=== PATIENT | female | born 1980 | race Caucasian/White ===

== ENCOUNTER 2021-01-13 11:33 | Emergency (ER) | payer BC ==
[~2021-01-13 11:33] MED LIST: AUGMENTIN 875-1 EACH PO; IBUPROFEN600 MG PO; NORCO 5-325 TA1 EACH PO; ZOFRAN ODT 4 MG4 MG PO
[2021-01-13 14:00] LABS: HEMOGLOBIN 14.5 gm/dl (12.3-15.3); RED BLOOD COUNT 4.62 M/UL (4.00-5.10); WHITE BLOOD COUNT 13.8 K/UL (4.5-11.0)
[2021-01-13 14:22] LABS: BUN/CREATININE RATIO 14 (0-10)
[2021-01-13] MEDS ORDERED: MECLIZINE HCL25 MG PO (16:43)
[2021-01-13] MEDS ORDERED: MOBIC15 MG PO (16:43)
[2021-03-17] MEDS ORDERED: CELEXA10 MG PO (16:16)
[2021-03-17] MEDS ORDERED: OMEPRAZOLE20 M1 PO (16:16)
[2021-03-17] MEDS ORDERED: VYVANSE40 MG PO (16:17)
[2021-03-17] MEDS ORDERED: ZYRTEC10 MG PO (16:17)
[2021-03-17] MEDS ORDERED: SINGULAIR10 MG PO (16:17)
[2021-03-17] MEDS ORDERED: FLONASE 0.05% N16 GM (16:18)
[2021-03-17] MEDS ORDERED: KRILL OIL500 MG PO (16:19)
[2021-03-17] MEDS ORDERED: BIRTH CONTROL PO (16:19)
[2021-03-17] MEDS ORDERED: AZO CRANBERRY1 EAC1 PO (16:19)
[2021-03-17] MEDS ORDERED: DAILY VALUE1 EACH PO (16:20)
[2021-03-17] MEDS ORDERED: PROBIOTIC1 EACH PO (16:20)
[2021-03-17] MEDS ORDERED: POTASSIUM99 M1 PO (16:20)
[2021-03-17] MEDS ORDERED: VITAMIN D325 MC6 PO (16:20)
[2021-03-17] MEDS ORDERED: VITAMIN B12 PO (16:21)
== END 2021-01-13 17:12 | disposition home or self-care (01) ==
LOC: ER1 11:33
PROVIDERS: Physician Assistant
DX: J32.8 Other chronic sinusitis (principal); R20.2 Paresthesia of skin; H55.09 Other forms of nystagmus; R42 Dizziness and giddiness; K21.9 Gastro-esophageal reflux disease without esophagitis; F41.9 Anxiety disorder, unspecified; Z90.49 Acquired absence of other specified parts of digestive tract; Z88.1 Allergy status to other antibiotic agents; Z79.899 Other long term (current) drug therapy; Z87.442 Personal history of urinary calculi; Z79.1 Long term (current) use of non-steroidal anti-inflammatories (NSAID)
CPT/HCPCS: 36415; 70450; 80053; 81001; 84703; 85025; 96372; 96374; 99284; J1885; J7030

== ENCOUNTER → 2021-02-03 | Outpatient (CLI) | payer BC ==
[~2021-02-03] MED LIST changes: +AZO CRANBERRY1 EAC1 PO; +BIRTH CONTROL PO; +CELEXA10 MG PO; +DAILY VALUE1 EACH PO; +FLONASE 0.05% N16 GM; +KRILL OIL500 MG PO; +MECLIZINE HCL25 MG PO; +MOBIC15 MG PO; +OMEPRAZOLE20 M1 PO; +POTASSIUM99 M1 PO; +PROBIOTIC1 EACH PO; +SINGULAIR10 MG PO; +VITAMIN B12 PO; +VITAMIN D325 MC6 PO; +VYVANSE40 MG PO; +ZYRTEC10 MG PO
== END ==
LOC: KOH-I 01-30 14:30
DX: J32.4 Chronic pansinusitis (principal); J34.89 Other specified disorders of nose and nasal sinuses; J34.2 Deviated nasal septum
CPT/HCPCS: 70486

== ENCOUNTER → 2021-03-20 | Day surgery (SDC) | payer BC | END | disposition home or self-care (01) | LOC: OR 06:47 | DX: J32.4 Chronic pansinusitis (principal); J34.3 Hypertrophy of nasal turbinates; J34.2 Deviated nasal septum; R09.82 Postnasal drip; K21.9 Gastro-esophageal reflux disease without esophagitis; E66.01 Morbid (severe) obesity due to excess calories; M19.90 Unspecified osteoarthritis, unspecified site; F41.8 Other specified anxiety disorders; Z20.822 Contact with and (suspected) exposure to COVID-19 | CPT/HCPCS: 84703; C1726; J0171; J0690; J1100; J2001; J2250; J2405; J2704; J2710; J3010; J7030; J7120 ==

== ENCOUNTER 2021-06-24 14:59 | Outpatient (CLI) | payer BC ==
[2021-06-24 16:13] LABS: HEMOGLOBIN 13.3 gm/dl (12.3-15.3); RED BLOOD COUNT 4.34 M/UL (4.00-5.10)
[2021-06-24 16:34] LABS: BUN/CREATININE RATIO 16 (0-10); GAMMA GLUTAMYL TRANSPEPTIDASE 36 U/L (7-64)
[2021-06-25 08:14] LABS: ALPHA-1-ANTITRYPSIN, SERUM 237 mg/dL (101-187); CERULOPLASMIN 40.9 mg/dL (19.0-39.0); HCV AB <0.1 (0.0-0.9)
[2021-06-25 11:15] LABS: HBSAG SCREEN Negative (Negative); HEP B CORE AB, IGM Negative (Negative); HEP B CORE AB, TOT Negative (Negative)
[2021-06-25 14:15] LABS: ACTIN (SMOOTH MUSCLE) ANTIBODY 6 Units (0-19); MITOCHONDRIAL (M2) ANTIBODY <20.0 Units (0.0-20.0)
[2021-06-26 06:10] LABS: HEP A AB, IGM Negative (Negative)
== END 2021-06-24 16:00 ==
LOC: LAB 14:59
PROVIDERS: Physician Assistant
DX: R74.8 Abnormal levels of other serum enzymes (principal); R05 Cough; R79.89 Other specified abnormal findings of blood chemistry; R19.7 Diarrhea, unspecified
CPT/HCPCS: 36415; 71046; 80053; 82103; 82390; 82728; 82977; 83516; 83540; 83550; 85025; 86704; 86705; 86706; 86708; 86709; 86803; 87340

== ENCOUNTER → 2021-06-26 | Outpatient (CLI) | payer BC | LOC: EXRD 08:00 | DX: R74.8 Abnormal levels of other serum enzymes (principal); R16.0 Hepatomegaly, not elsewhere classified | CPT/HCPCS: 76705 ==

== ENCOUNTER → 2021-07-09 | Outpatient (CLI) | payer BC ==
[2021-07-11 08:13] LABS: ALPHA-1-ANTITRYPSIN, SERUM 218 mg/dL (101-187)
[2021-07-11 11:13] LABS: HBSAG SCREEN Negative (Negative); HEP A AB, IGM Negative (Negative); HEP B CORE AB, IGM Negative (Negative); HEP C VIRUS AB <0.1 (0.0-0.9)
[2021-07-11 15:08] LABS: MITOCHONDRIAL (M2) ANTIBODY <20.0 Units (0.0-20.0)
== END ==
LOC: LAB 15:27
PROVIDERS: Internal Medicine Gastroenterology
DX: R94.5 Abnormal results of liver function studies (principal)
CPT/HCPCS: 80074; 80076; 82103; 82728; 83540; 83550; 86038

== ENCOUNTER → 2022-05-17 | Outpatient (CLI) | payer BC | LOC: RAD 14:26 | DX: M25.561 Pain in right knee (principal); M25.562 Pain in left knee | CPT/HCPCS: 73562 ==

== ENCOUNTER → 2022-07-01 | Outpatient (CLI) | payer BC ==
[2022-07-01 16:40] LABS: BORDETELLA PARAPERTUSSIS Not Detected (Not Detectd); BORDETELLA PERTUSSIS Not Detected (Not Detectd); CHLAMYDIA PNEUMONIAE Not Detected (Not Detectd); CORONAVIRUS HKU1 Not Detected (Not Detectd); CORONAVIRUS NL63 Not Detected (Not Detectd); CORONAVIRUS OC43 Not Detected (Not Detectd); CORONOAVIRUS 229E Not Detected (Not Detectd); HUMAN METAPNEUMOVIRUS Not Detected (Not Detectd); HUMAN RHINOVIRUS/ENTEROVIRUS Not Detected (Not Detectd); INFLUENZA A Not Detected (Not Detectd); INFLUENZA B Not Detected (Not Detectd); MYCOPLASMA PNEUMONIAE Not Detected (Not Detectd); PARAINFLUENZA VIRUS 1 Not Detected (Not Detectd); PARAINFLUENZA VIRUS 2 Not Detected (Not Detectd); PARAINFLUENZA VIRUS 3 Not Detected (Not Detectd); PARAINFLUENZA VIRUS 4 Not Detected (Not Detectd); RESPIRATORY SYNCYTIAL VIRUS Not Detected (Not Detectd)
[2022-07-01 17:46] LABS: SARS-CoV-2 NOT DETECTED (Not Detectd)
== END ==
LOC: RAD 16:25
PROVIDERS: Physician Assistant
DX: R06.02 Shortness of breath (principal); Z20.822 Contact with and (suspected) exposure to COVID-19
CPT/HCPCS: 71046; 87633

== ENCOUNTER → 2022-07-20 | Outpatient (CLI) | payer BC | LOC: HEART 5 09:10 | DX: R06.02 Shortness of breath (principal); R53.83 Other fatigue; R01.1 Cardiac murmur, unspecified; R07.9 Chest pain, unspecified; R00.2 Palpitations; I08.0 Rheumatic disorders of both mitral and aortic valves; R94.2 Abnormal results of pulmonary function studies | CPT/HCPCS: 93306; 94060 ==

== ENCOUNTER → 2022-08-04 | Outpatient (CLI) | payer BC | LOC: EXRD 08-02 11:00 | DX: R60.9 Edema, unspecified (principal) | CPT/HCPCS: 93970 ==